=== PATIENT | female | born 1965 | race Caucasian/White ===

== ENCOUNTER 2024-02-29 14:20 | Emergency (ER) | payer BC ==
[~2024-02-29] VITALS: Ht 167.6 cm; Wt 90.7 kg
[~2024-02-29 14:20] MED LIST: SENN15TA PO; [UNRECOGNIZED DRUG - CODE] PO
[2024-02-29 14:57] VITALS: BP 203/126; PULSE 84; RESP 16; TEMP 98.7; O2SAT 100
[2024-02-29 15:56] LABS: BASOPHIL # 0.1 10^3/uL (0.0-0.1); BASOPHIL % 0.9 % (0.1-1.2); EOSINOPHIL # 0.1 10^3/uL (0.0-0.2); EOSINOPHIL % 2.5 % (0.0-5.0); HEMOGLOBIN 15.3 g/dL (12.0-15.0); IG % 0.2 % (0.00-0.50); LYMPHOCYTES # 1.65 10^3/uL1 (1.0-4.8); LYMPHOCYTES % 29.7 % (24.0-44.0); MEAN CORP HGB 27.7 pg (26-34); MEAN CORP HGB CONCENTRATION 32.6 g/dL (33-36.5); MEAN CORP VOLUME 85.1 fL (78-100); MONOCYTES # 0.5 10^3/uL (0.3-0.8); MONOCYTES % 8.5 % (5.0-12.0); NEUTROPHIL # 3.2 10^3/uL (1.8-7.7); NEUTROPHILS % 58.2 % (41.0-85.0); RED BLOOD CELL 5.52 10^6/uL (4.00-5.20); RED CELL DISTRIBUTION WIDTH 12.9 % (11.5-14.5); WHITE BLOOD CELL 5.6 10^3/uL (4.5-11.0)
[2024-02-29 16:29] LABS: BILIRUBIN,URINE NEGATIVE (NEGATIVE); LEUKOCYTE ESTERASE ,URINE 1+ (NEGATIVE); NITRATE,URINE NEGATIVE (NEGATIVE); PH,URINE 6.5 (4.5-8.0)
[2024-02-29 16:33] LABS: ALBUMIN(ML) 3.7 g/dL (3.4-5.0); ANION GAP 11.7; BUN/CREATININE RATIO 11.62 (10.0-20.0); CALCIUM 8.9 mg/dL (8.4-10.5); CARBON DIOXIDE 29.9 mmol/L (20.0-32); CREATININE SERUM 0.86 mg/dL (0.59-1.40); EST GFR, NON-AA 68.3 (>/=60); POTASSIUM 3.6 mmol/L (3.6-5.2)
[2024-02-29 16:36] LABS: APPEARANCE,URINE CLOUDY; UA COLOR YELLOW
[2024-02-29 16:47] LABS: ALBUMIN/GLOBULIN RATIO 0.822
[2024-02-29] MEDS ORDERED: SULF1TAB24 PO (16:57)
== END 2024-02-29 16:58 | disposition home or self-care (01) ==
LOC: ER 14:20
DX: N39.0 Urinary tract infection, site not specified (principal); F41.9 Anxiety disorder, unspecified; F12.90 Cannabis use, unspecified, uncomplicated; Z88.5 Allergy status to narcotic agent
CPT/HCPCS: 36415; 71045; 80053; 81001; 82550; 84484; 85025; 87077; 87086; 87186; 93005; 99284

== ENCOUNTER → 2024-03-19 | Outpatient (CLI) | payer BC ==
[~2024-03-19] MED LIST changes: +SULF1TAB24 PO
== END | disposition home or self-care (01) ==
LOC: RAD 13:30
PROVIDERS: ATTEND Nurse Practitioner Family
DX: M47.816 Spondylosis without myelopathy or radiculopathy, lumbar region (principal); M85.88 Other specified disorders of bone density and structure, other site
CPT/HCPCS: 72100